=== PATIENT | female | born 1950 | race Caucasian/White ===

== ENCOUNTER 2024-03-06 08:13 | Observation (INO) ==
--- NOTE | 2024-01-30 13:02 | PAT Medication Instructions ---
Medication Instructions Date of Service January 30, 2024 Home Medications albuterol sulfate 90 mcg/actuation aerosol inhaler 2 puff inhalation Q6H PRN Shortness Of Breath ascorbic acid (vitamin C) 1,000 mg capsule 1 g PO QAM cholecalciferol (vitamin D3) 25 mcg (1,000 unit) capsule 25 mcg PO QAM fluticasone propionate 110 mcg/actuation HFA aerosol inhaler 1 puff inhalation BID levocetirizine 5 mg tablet 5 mg PO HS lisinopril 20 mg-hydrochlorothiazide 12.5 mg tablet 1 tab PO QAM magnesium oxide,aspartate,citr 400 mg PO QAM pantoprazole 40 mg tablet,delayed release 40 mg PO QAM potassium chloride 10 mEq capsule,extended release 20 meq PO QAM pravastatin 40 mg tablet 40 mg PO HS zinc acetate 50 mg (zinc) capsule 50 mg PO QAM docusate sodium 100 mg tablet (Stool Softener) 100 mg PO HS PRN Constipation fluticasone propionate 50 mcg/actuation nasal spray,suspension 1 spray intranasal QAM DO NOT take the morning of surgery ascorbic acid (vitamin C) 1,000 mg capsule 1 g PO QAM cholecalciferol (vitamin D3) 25 mcg (1,000 unit) capsule 25 mcg PO QAM lisinopril 20 mg-hydrochlorothiazide 12.5 mg tablet 1 tab PO QAM magnesium oxide,aspartate,citr 400 mg PO QAM potassium chloride 10 mEq capsule,extended release 20 meq PO QAM zinc acetate 50 mg (zinc) capsule 50 mg PO QAM Take morning of surgery With a small sip of water, OTHERWISE NOTHING TO EAT OR DRINK AFTER MIDNIGHT: albuterol sulfate 90 mcg/actuation aerosol inhaler 2 puff inhalation Q6H PRN Shortness Of Breath (use if needed; please bring rescue inhaler with you to hospital day of surgery if possible) fluticasone propionate 110 mcg/actuation HFA aerosol inhaler 1 puff inhalation BID pantoprazole 40 mg tablet,delayed release 40 mg PO QAM fluticasone propionate 50 mcg/actuation nasal spray,suspension 1 spray intranasal QAM Take evening before surgery albuterol sulfate 90 mcg/actuation aerosol inhaler 2 puff inhalation Q6H PRN Shortness Of Breath (if needed) fluticasone propionate 110 mcg/actuation HFA aerosol inhaler 1 puff inhalation BID levocetirizine 5 mg tablet 5 mg PO HS pravastatin 40 mg tablet 40 mg PO HS docusate sodium 100 mg tablet (Stool Softener) 100 mg PO HS PRN Constipation (if needed) Other Notes If you have any questions please call us at [phone] or [phone] or [phone] or [phone]
--- NOTE | 2024-02-05 13:40 | Anesthesiology Consultation ---
Date of Service February 05, 2024 Assessment & Plan (1) Encounter for pre-operative examination: - Infectious disease screening: Per assessment on 02/05/24: No known infectious disease contacts or current infectious disease symptoms. No noted recent Covid positive test result. - Outpatient joint assessment: Pt currently scheduled for inpatient pathway. If surgeon requests review for outpatient joint pathway, patient is not recommended candidate for outpatient joint program from anesthesia standpoint based upon available information. Chart Review Chart Review: Acceptable Risk for Surgery and Patient seen in Pre Admission Testing Teaching & Discussion Pre-Anesthesia Teaching/Discussion Notes: Instructed NPO after midnight before surgery,except medications with 15 cc of water. Medication instructions provided according to the PAT guidelines. History Surgery Operation Date: 03/06/24 09:00 Proposed Procedures p Left Total Knee Arthroplasty - Vicente Cardona DO Height/Weight Height: 5 ft 2 in Weight: 89.6 kg Allergies Allergy/AdvReac Type Severity Reaction Status Date / Time adhesive tape Allergy Intermediate Redness, Verified 02/05/24 13:47 itchiness, bruising coloration with adhesives Medications Home Medications Medication Instructions Recorded Confirmed Last Taken albuterol sulfate 90 mcg/actuation 2 puff inhalation Q6H PRN 12/11/23 01/28/24 Unknown aerosol inhaler Shortness Of Breath ascorbic acid (vitamin C) 1,000 mg 1 g PO QAM 12/11/23 01/28/24 Unknown capsule cholecalciferol (vitamin D3) 25 25 mcg PO QAM 12/11/23 01/28/24 Unknown mcg (1,000 unit) capsule fluticasone propionate 110 1 puff inhalation BID 12/11/23 01/28/24 Unknown mcg/actuation HFA aerosol inhaler levocetirizine 5 mg tablet 5 mg PO 12/11/23 01/28/24 Unknown lisinopril 20 1 tab PO QAM 12/11/23 01/28/24 Unknown mg-hydrochlorothiazide 12.5 mg tablet magnesium oxide,aspartate,citr 400 mg PO QAM 12/11/23 01/28/24 Unknown pantoprazole 40 mg tablet,delayed 40 mg PO QAM 12/11/23 01/28/24 Unknown release potassium chloride 10 mEq 20 meq PO QAM 12/11/23 01/28/24 Unknown capsule,extended release pravastatin 40 mg tablet 40 mg PO 12/11/23 01/28/24 Unknown zinc acetate 50 mg (zinc) capsule 50 mg PO QAM 12/11/23 01/28/24 Unknown docusate sodium 100 mg tablet 100 mg PO HS PRN Constipation 01/28/24 01/28/24 Unknown (Stool Softener) fluticasone propionate 50 1 spray intranasal QAM 01/28/24 01/28/24 Unknown mcg/actuation nasal spray,suspension Past Medical History Medical History Asthma GERD (gastroesophageal reflux disease) Hyperlipidemia Hypertension Obesity Osteoarthritis Exercise / Class Metabolic Activity III < 4 Walking/Shop/Light housework Past Family History Family History Other No family history of adverse response to anesthesia Past Surgical History Surgical History History of cardiac cath ~2013- no stents, symptoms felt to be r/t GERD per patient History of cholecystectomy History of colonoscopy History of esophagogastroduodenoscopy (EGD) History of knee surgery zapata's cyst removed History of left cataract extraction History of tonsillectomy and adenoidectomy History of tooth extraction Past Anesthesia History No Hx of Anesthesia Complications and No Family Hx of Anesthesia Complications History of PONV No Hx of PONV and No Hx of Motion Sickness Social History Smoking Status: Never smoker Do You Dip or Chew Tobacco: No Hx Alcohol Use: Yes Alcohol type: wine and hard liquor alcohol intake frequency: holidays/special occasions only Hx Substance Use: No substance use type: does not use Review of Systems Patient denies chest pain, shortness of breath, dyspnea on exertion, fever, chills, cough, wheezing, palpitations. Physical Exam Vital Signs BP 109/71 P 83 TEMP 98.1 SP02 97%RA RESP 18 Physical Full cervical extension range of motion. Full TMJ range of motion. TMD > 3.5 finger breaths Mallampati Score 2 Dentition: several missing sides/molars Lungs: clear throughout to auscultation Cardiac: regular rate and rhythm, no murmurs noted Spine: normal Carotid arteries: negative bruit Extremities: no LE edema Lab Results Anesthesia Preop Results Results Anesthesia Widget: WBC 4.24 K/ul (4.8-10.8) L 02/05/24 Hgb 12.7 g/dl (12.0-16.0) 02/05/24 Hct 38.5 % (37.0-47.0) 02/05/24 Plt 116 K/uL (130-400) L 02/05/24 Na 140 mmol/L (136-145) 02/05/24 K 3.5 mmol/L (3.5-5.1) 02/05/24 Cl 104 mmol/L (98-107) 02/05/24 CO2 28 mmol/L (21-32) 02/05/24 BUN 14 mg/dl (6-23) 02/05/24 Creat 0.67 mg/dl (0.6-1.2) 02/05/24 Glucose Level 113 mg/dl (70-99(Fasting)) H 02/05/24 PT 10.5 Seconds (9.0-12.0) 02/05/24 PTT 26 Seconds (21-31) 02/05/24 INR 1.0 (0.9-1.1) 02/05/24 Blood Type A Positive 02/05/24 Antibody Screen NEGATIVE 02/05/24 Testing Electrocardiogram Date: 02/05/24 SR with first degree AVB at 76bpm. "Otherwise normal ECG" Chest X-Ray Date: 02/05/24 FINDINGS: PA and lateral chest radiographs are obtained. No prior studies are available for comparison at the time of dictation. The cardiomediastinal silhouette is unremarkable. There is minimal bibasilar atelectasis. The lungs and pleural spaces are otherwise clear. There is no pneumothorax. The skeletal structures are osteopenic. The bony thorax appears intact. Cholecystectomy clips are seen in the right upper quadrant. IMPRESSION: No active disease in the chest.
--- NOTE | 2024-03-05 11:07 | History & Physical Report ---
Date of Service March 05, 2024 Assessment & Plan (1) Osteoarthritis of left knee: We will proceed with a left total knee arthroplasty. Postoperatively she will be started on aspirin for DVT prophylaxis and kept overnight in the hospital for postop medical management. She plans to have the hospital set up home health before discharge. History of Present Illness Chief Complaint: Osteoarthritis of the left knee. Primary Care Provider: NO PCP Angie is a pleasant 73-year-old female who has been dealing with bilateral knee pain. She has known osteoarthritis in both knees. She has been going to physical therapy and seeing another provider up in [facility]. She has been given multiple injections of viscosupplementation. Unfortunately, it is no longer helping. X-rays confirm advanced osteoarthritis of the left knee. After failing conservative treatment, she has elected proceed with a left total knee arthroplasty. Allergies Allergy/AdvReac Type Severity Reaction Status Date / Time adhesive tape Allergy Intermediate Redness, Verified 02/05/24 13:47 itchiness, bruising coloration with adhesives Home Medications Medication Instructions Recorded Confirmed Type albuterol sulfate 90 mcg/actuation 2 puff inhalation Q6H PRN 12/11/23 01/28/24 History aerosol inhaler Shortness Of Breath ascorbic acid (vitamin C) 1,000 mg 1 g PO QAM 12/11/23 01/28/24 History capsule cholecalciferol (vitamin D3) 25 25 mcg PO QAM 12/11/23 01/28/24 History mcg (1,000 unit) capsule fluticasone propionate 110 1 puff inhalation BID 12/11/23 01/28/24 History mcg/actuation HFA aerosol inhaler levocetirizine 5 mg tablet 5 mg PO HS 12/11/23 01/28/24 History lisinopril 20 1 tab PO QAM 12/11/23 01/28/24 History mg-hydrochlorothiazide 12.5 mg tablet magnesium oxide,aspartate,citr 400 mg PO QAM 12/11/23 01/28/24 History pantoprazole 40 mg tablet,delayed 40 mg PO QAM 12/11/23 01/28/24 History release potassium chloride 10 mEq 20 meq PO QAM 12/11/23 01/28/24 History capsule,extended release pravastatin 40 mg tablet 40 mg PO HS 12/11/23 01/28/24 History zinc acetate 50 mg (zinc) capsule 50 mg PO QAM 12/11/23 01/28/24 History docusate sodium 100 mg tablet 100 mg PO HS PRN Constipation 01/28/24 01/28/24 History (Stool Softener) fluticasone propionate 50 1 spray intranasal QAM 01/28/24 01/28/24 History mcg/actuation nasal spray,suspension Past Med/Surg History Medical History Osteoarthritis Obesity Hyperlipidemia Hypertension GERD (gastroesophageal reflux disease) Asthma Surgical History History of left cataract extraction History of knee surgery zapata's cyst removed History of colonoscopy History of esophagogastroduodenoscopy (EGD) History of cholecystectomy History of tooth extraction History of tonsillectomy and adenoidectomy History of cardiac cath ~2013- no stents, symptoms felt to be r/t GERD per patient Family History Other No family history of adverse response to anesthesia Social History Smoking Status: Never smoker Second Hand Exposure: No; Do You Dip or Chew Tobacco: No; Tobacco Cessation Education Requested by Patient: No Hx Alcohol Use: Yes Alcohol type: wine and hard liquor Hx Substance Use: No Preferred Language: [place] Communication Ability: Effective [employer] Supervisor Required: No Beliefs That Will Affect Care: None Current Living Situation: Alone Other Information That Helps Us Care for You: No Feels Safe at Home: Yes Safety Concerns: Feels Safe At This Time Assistive Devices: Glasses Assistive Devices Comment: reading glasses Review of Systems All systems reviewed & are unremarkable except as noted in HPI & below. Physical Exam On physical examination of the left knee, she has a significant varus deformity. She has tenderness palpation of the distal medial femoral condyle and over the medial joint line.. Constitutional WD/WN, vitals as above Eyes PERRL, conjunctivae normal, anicteric sclerae ENMT external ear and nose normal, oropharynx normal Neck trachea midline, no thyromegaly Respiratory normal respiratory effort Cardiovascular RRR, no murmur, no edema Gastrointestinal (Abdomen) normal bowel sounds, soft, nontender, no hepatosplenomegaly Psychiatric A+Ox3, euthymic affect Results & Data Results & Data Laboratory Results . Diagnostic Findings X-rays of the right knee show advanced osteoarthritis with joint space narrowing osteophyte formation and [id number] articulation. PG Care Time/CCT Total # of Minutes Spent Total Time Spent with Patient: Total time spent is greater than 50% in coordination of care (as documented) at patient's floor/unit and/or counseling patient: Coding Level of Care Code None Diagnoses Osteoarthritis of left knee M17.12
[~2024-03-06 08:13] MED LIST: BUPIVACAINE 0.5 % 5 MG/1 ML PF 10ML VIAL ONE; ROPIVACAINE 0.5% 5 MG/ML 30 ML VIAL ONE
[2024-03-06] MEDS ORDERED: PROPOFOL IV EMULSION 10 MG/ML 20 ML VIAL IV ONE (08:21)
[2024-03-06] MEDS ORDERED: fentaNYL citrate PF 100 MCG/2 ML VIAL ONE (08:21)
[2024-03-06] MEDS ORDERED: MIDAZOLAM HCL 1 MG/ML 2ML VIAL ONE (08:22)
--- NOTE | 2024-03-06 09:00 | History & Physical Bridge Note ---
Date of Service March 06, 2024 History & Physical Bridge Note I have examined the patient, reviewed the History & Physical and in the interval since the performance of the History & Physical I have noted the following changes of clinical significance: no changes noted
[2024-03-06] MEDS: LR 500ML BOLUS, THEN 15ML/HR IV SCH (09:01)
[2024-03-06] MEDS: GABAPENTIN 300 MG CAP PO SCH (09:01)
[2024-03-06] MEDS: ACETAMINOPHEN 500 MG TAB PO SCH ×2 (09:01→14:16)
[2024-03-06] MEDS: FAMOTIDINE 20 MG TAB PO SCH (09:01)
[2024-03-06] MEDS: dexAMETHasone**PF** 10 MG/ML VIAL IV SCH (09:01)
[2024-03-06] MEDS: LR 60ML/HR IV SCH (09:02)
[2024-03-06] MEDS ORDERED: fentaNYL citrate PF 100 MCG/2 ML VIAL IV PRN (09:29)
[2024-03-06] MEDS ORDERED: ATROPINE SULFATE 0.1 MG/ML 10ML SYR IV PRN (09:29)
[2024-03-06] MEDS ORDERED: ePHEDrine sulfate 50 MG/ML AMP IV PRN (09:29)
[2024-03-06] MEDS ORDERED: ONDANSETRON INJ 2 MG/ML 2 ML VIAL IV PRN ×2 (09:29→13:20)
[2024-03-06] MEDS: TRANEXAMIC ACID 1,000 MG **IV Pre-op IV SCH (10:08)
[2024-03-06] MEDS: ceFAZolin 2000MG 2,000 MG/15 ML SYR IV SCH ×2 (10:18→16:58)
[2024-03-06] MEDS: ORTHO JOINT ANESTHETIC ONE (10:38)
[2024-03-06] MEDS: ROPIV 0.5% 246mg, Ketorolac 30mg, EPINEPHrine 0.5mg in NSS INFIL SCH (11:30)
[2024-03-06] MEDS: TRANEXAMIC ACID 1,000 MG **IV Intra-op IV SCH (11:35)
--- NOTE | 2024-03-06 11:37 | Operative Report ---
PG Post Operative Report Pre & Post Diagnosis Operation Date: 03/06/24 10:00 Pre-Op Diagnosis: Osteoarthritis of left knee Post-Op Diagnosis: Osteoarthritis of left knee I identified the patient and participated in the time-out.: Yes Procedure Operation Date: 03/06/24 10:00 Actual Procedures p Left Total Knee Arthroplasty(Left) - Vicente Cardona DO Surgeon Vicente Cardona DO Fine Grader Vicente Bhardwaj PA-C Estimated Blood Loss 30 Findings Consistent with Post-Op Diagnosis Specimens Left femoral tibial bone Description of Procedure Implants used: I used a Shanika Persona total knee arthroplasty system with a size 5 PS femur, D tibia, 31 over patella, and a size 14 CPS polyethylene bearing. All components were cemented in place with Biomet cement. Angie arrived [facility] for the above procedure. She was seen in the preoperative holding area and the operative extremity was identified and signed. She was given a preoperative antibiotic, TXA, a spinal anesthetic and an adductor nerve block. She was taken back to the operating room and laid on the table in supine position. She was given basic sedation. The operative knee was then prepped and draped in sterile fashion. A timeout was done, and the patient and the operative extremity was properly identified. A midline incision was made directly over the patella. Dissection was taken down to the extensor mechanism. A medial parapatellar arthrotomy was used. The medial retinaculum was released and the fat pad was mostly excised. The knee was flexed and the ACL, PCL, and meniscus were removed. A drill was sent down the center of the femoral canal followed by an intramedullary mckayla. Off that mckayla a distal femoral cutting block was placed. 9 mm was resected off the distal femur at 5 of valgus. A posterior referencing AP sizing guide was then placed on the distal femur. The femur measured to be a size 5. 2 drill holes were placed in 3 of external rotation. A 4-in-1 cutting block was then impacted into place. Anterior, posterior, and chamfer cuts were then made. The proximal tibia was then exposed. An external tibial alignment guide was placed. A tibial cut guide was then anchored in place and the proximal tibia was then resected. The posterior aspect of the knee was then opened up and any additional meniscus fragments and osteophytes were removed. The tibia measured to be a size D. The tibial plate was then placed in the appropriate rotation and the tibia was drilled and punched. Trial components were then placed. I used a size 14 CPS polyethylene insert. The knee was brought through a full range of motion and felt to be stable. The peg holes for the femoral component were then drilled. The patella was then everted and 9 mm was resected off the posterior aspect of the patella. The patella measured to be a size 31 oval. 3 peg holes were then drilled. A trial patella was placed. The knee was once again brought through a full range of motion and felt to be stable. Trial components were then removed. The surrounding soft tissues were injected with 100 cc of an orthopedic pain control cocktail. All components were then cemented into place with Biomet cement. The final polyethylene insert was then snapped into place. Once cement was dry the tourniquet was deflated. Hemostas is was obtained. A dilute betadyne lavage was then done for 3 minutes. The joint was then irrigated with normal saline solution. The medial parapatellar arthrotomy was then closed with #1 Vicryl suture. The skin was closed with 2-0 Vicryl, 3-0V lock suture, and aliyah. A soft compressive dressing was placed. She was then transferred to a hospital bed and taken to the postanesthesia care unit in stable condition. She tolerated the procedure well. Vicente Bhardwaj PA-C, was present for the entire procedure. He was critical for patient positioning, prepping, draping, retraction exposure, wound closure and application of sterile dressing. I attest to the content of the Intraoperative Record and any orders documented therein. Any exceptions are noted below.
--- NOTE | 2024-03-06 12:24 | XRay Report ---
XR knee LT 1 or 2V routine HISTORY: 73 years-old Female Surgical Post Op left knee arthroplasty COMPARISON: 12/11/2023 TECHNIQUE: 2 views of the left knee FINDINGS: Total joint arthroplasty with patellar resurfacing. Anterior midline skin aliyah with expected posto perative soft tissue swelling and deep tissue air. No acute fracture, dislocation or unexpected opaqu e foreign body. IMPRESSION: Total joint arthroplasty with expected postoperative changes. ACT 112: Negative or not required by law. The above report was generated using voice recognition software. It may contain grammatical, syntax o r spelling errors. Electronically signed by: Scott Sneed M.D. 03/06/2024 12:23 PM
--- NOTE | 2024-03-06 12:50 | Anesthesiology Progress Note ---
Date of Service March 06, 2024 Anesthesia Post Procedure Vital Signs Vital Signs: Temp Pulse Pulse Resp BP Pulse Ox O2 Del Method 03/06/24 12:40 98.1 F 84 17 126/75 94 Room Air 03/06/24 12:30 94 H 20 122/70 98 Oxymask 03/06/24 12:20 85 18 120/75 97 Oxymask 03/06/24 12:10 88 17 112/84 98 Oxymask 03/06/24 12:00 97.2 F L 90 14 111/59 L 97 Oxymask 03/06/24 09:13 98.2 F 101 H 20 142/71 H 95 Room Air O2 Flow Rate 03/06/24 12:40 03/06/24 12:30 3 03/06/24 12:20 3 03/06/24 12:10 3 03/06/24 12:00 5 03/06/24 09:13 Transfer of Care Handoff Completed per policy Notes Mental Status: alert / awake / arousable and participated in evaluation Patient Amnestic to Procedure: Yes Nausea / Vomiting: adequately controlled Pain: adequately controlled Airway Patency, RR, SpO2: stable & adequate BP & HR: stable & adequate Hydration State: stable & adequate Neuraxial Anesthesia: was administered and sensory block is resolving Anesthetic Complications: no major complications apparent and Pt Satisfied with anesthetic care
[2024-03-06] MEDS ORDERED: bisacodyL 10 MG SUPP PR PRN (13:20)
[2024-03-06] MEDS ORDERED: NALOXONE HCL 0.4 MG/1 ML VIAL/CARP IV PRN (13:20)
[2024-03-06] MEDS ORDERED: MAGNESIUM HYDROXIDE SUSP 30 ML UDC PO PRN (13:20)
[2024-03-06] MEDS ORDERED: ALBUTEROL HFA 8 GM INHALER INH PRN (13:20)
[2024-03-06] MEDS ORDERED: oxyCODONE HCL IR 5 MG TAB (IMMEDIATE RELEASE) PO PRN (13:20)
[2024-03-06] MEDS ORDERED: METOCLOPRAMIDE HCL INJ 5 MG/ML 2 ML VIAL IV PRN (13:20)
[2024-03-06] MEDS ORDERED: HYDROmorphone INJ 0.5 MG/0.5 ML SYR IV PRN (13:20)
[2024-03-06] MEDS: SODIUM CHLORIDE 0.9% 1,000 ML IV SCH (13:34)
[2024-03-06] MEDS: KETOROLAC TROMETHAMINE 15 MG/ML VIAL IV SCH (14:16)
[2024-03-06] MEDS: FLUTICASONE FUROATE 100MCG 14 PUFFS/INHALER INH SCH (14:16)
[2024-03-06] MEDS: SENNA 8.6 MG TAB PO SCH (20:06)
[2024-03-06] MEDS: PRAVASTATIN SOD 40 MG TAB PO SCH (20:06)
[2024-03-06] MEDS: ASPIRIN 81 MG ECTAB PO SCH (20:06)
[2024-03-06] MEDS: DOCUSATE SODIUM 100 MG CAP PO SCH (20:06)
[2024-03-06] MEDS: CETIRIZINE HCL 10 MG TABLET PO SCH (20:06)
--- NOTE | 2024-03-07 07:21 | Orthopedic Progress Note ---
Date of Service March 07, 2024 Assessment & Plan (1) Status post left knee replacement: Overall she is doing very well. She is not having much pain in the left knee. She will be seen by physical therapy today for ambulation and range of motion exercises. The nursing staff can change her dressing after physical therapy. She is on aspirin for DVT prophylaxis. She can be discharged home later today. She will follow-up with orthopedics in 2 weeks. Yefri Adams was seen and examined at bedside this morning. Overall she is doing very well. She is not having much pain in the left knee. She has been up and ambulating to the bathroom. She is no complaints.. Review of Systems All systems reviewed & are unremarkable except as noted in HPI & below. Physical Exam On physical examination of left knee, the dressing is clean and dry. Her leg is out full extension. She has active dorsiflexion plantarflexion of her left ankle.. Results & Data Results & Data Laboratory Results . Diagnostic Findings Postoperative x-rays of the left knee show the prosthesis to be in anatomic alignment without any evidence of fracture, desiccation, or loosening.. PG Care Time/CCT Total # of Minutes Spent Total Time Spent with Patient: Total time spent is greater than 50% in coordination of care (as documented) at patient's floor/unit and/or counseling patient: Coding Level of Care Code 27527 Post Operative Follow-Up Diagnoses Status post left knee replacement Z96.652
--- NOTE | 2024-03-07 07:22 | Discharge Summary ---
Date of Service March 07, 2024 Admission HPI (Per Admitting) Angie is a pleasant 73-year-old female who has been dealing with bilateral knee pain. She has known osteoarthritis in both knees. She has been going to physical therapy and seeing another provider up in [facility]. She has been given multiple injections of viscosupplementation. Unfortunately, it is no longer helping. X-rays confirm advanced osteoarthritis of the left knee. After failing conservative treatment, she has elected proceed with a left total knee arthroplasty. Admission Exam (Per Admitting) On physical examination of the left knee, she has a significant varus deformity. She has tenderness palpation of the distal medial femoral condyle and over the medial joint line.. Principal Diagnosis Same as "Discharge Diagnosis" noted below under Discharge Instructions. Discharge Exam On physical examination of left knee, the dressing is clean and dry. Her leg is out full extension. She has active dorsiflexion plantarflexion of her left ankle.. Discharge Data Procedures Performed Operation Date: 03/06/24 10:00 Actual Procedures p Left Total Knee Arthroplasty(Left) - Vicente Cardona DO Ordered Studies 03/06/24 05:00 US - OR guided needle placemen Routine Hospital Course (1) Status post left knee replacement: On March 06, 2024 Angie arrived at [facility] and underwent a left knee replacement without complication. She had a spinal anesthetic. Postoperatively she was started on aspirin for DVT prophylaxis and transferred to the general orthopedic floors. Her hospital course was uneventful. On postop day #1, her vital signs were stable and her pain was well-controlled. She was able to participate well with physical therapy doing ambulation and range of motion exercises. She was then discharged home. She will follow-up with orthopedics in 2 weeks. PG Care Time/CCT Total # of Minutes Spent Total Time Spent with Patient: Total time spent is greater than 50% in coordination of care (as documented) at patient's floor/unit and/or counseling patient: Discharge Plan Discharge Items Patient Disposition: Home - Self-Care Reason For Visit: Left Knee Degenerative Joint Disease Discharge Diagnosis: Left knee replacement Activity: Per Instructions section Non-emergency contact: Surgeon Call non-emergency contact if: your wound has increased redness and your wound has increased drainage Follow-up/Referrals: Tonya Giraldo MD [Primary Care Provider] - Diet: Regular Addtl Attending Provider Instructions: Activity and Therapy Recommendations: * If you are using [facility] then therapy will be provided at your home until they feel you have accomplished all of your goals. * If you are using [facility] then Physical Therapy will be provided until they feel you are ready to start Outpatient Physical Therapy. * If you are not using home therapy then Outpatient Physical Therapy should start about 3-5 days from your day of surgery. Therapy will last about 6-10 weeks * It is important not to put a pillow under your knee when you are relaxing or sleeping. It is just as important to make sure you are getting your knee perfectly straight as it is to regain your knee bend. * You were shown a series of exercises in the hospital. Do these exercises three times each day including the exercises you were shown in physical therapy. * Get up and walk several times each day. For the first four weeks, try not to stand or walk for more than one hour at a time. If you do stand or walk for more than one hour, you will not hurt anything, but your leg will likely swel l. * As you feel comfortable, you may change from the walker or crutches to a cane and then to independent walking. Medications: * Narcotic You will likely be sent home from the hospital with a prescription for the narcotic pain medication that worked best throughout your stay. * Cefadroxil -take the antibiotic twice a day for 10 days to help prevent infection. * Aspirin Most patients will be required to take Aspirin 81mg twice a day for 6 weeks after surgery. This is obtained [id number] and a prescription is not necessary. * Other medications may be prescribed for specific circumstances. If you have any questions, please call the office at . * Resume previous home medications unless otherwise instructed TEDs/Elastic Stockings: The white elastic stockings help limit swelling and prevent blood clots from forming in your legs.~ The more you wear them, the more they work. Wear them for six weeks. Dressing Care: The dressing can be changed after physical therapy on postop day #1. Daily dry dressing changes for a few days, especially if the incision is still draining some. If the incision is not draining then you may leave the aliyah open to air. If there is a little bit of drainage or if the aliyah are getting stuck on your clothing then cover the incision with a dry dressing. The aliyah will be removed at your 2 week follow-up appointment. Showering: You may shower 5 days from the day of surgery as long as the incision is no longer draining. You may shower with the aliyah exposed. Let soapy water run over the aliyah and pat them dry. Do not scrub or soak the incision. Things To Watch For: * Drainage from the incision site that occurs more than one week after your surgery. * Increased redness at the incision site. * Fever above 102 degrees Fahrenheit. * Unusual chest pain or shortness of breath. * Call [facility] at with any of the above problems Follow-Up Visit: Follow-up with Dr. Cardona's PA (Vicente Bhardwaj) 2-3 weeks after your day of surgery. He will remove your aliyah and answer any questions. If you have any additional questions or concerns, Dr Cardona is usually in the office at the same time and will be available An appointment was probably scheduled when you signed-up for surgery in the office. If you have any questions call Office Instructions: More detailed instructions as well as Frequently Asked Questions were provided in a folder by our office when you signed-up for surgery. Please review these instructions when you get home. If you have any further questions or concerns, please feel free to call the office at [phone] Pending Studies at Discharge: No Stand-Alone Forms: [facility] Sm[facility] Cess[facility] Medications and DC Order Prescriptions: New oxycodone 5 mg Tablet 5 mg PO Q4H PRN (Reason: pain) Qty: 30 0RF cefadroxil 500 mg capsule 500 mg PO BID 10 Days Qty: 20 0RF aspirin 81 mg Tablet,Delayed Release (Dr/Ec) 81 mg PO BID 42 Days Qty: 0 0RF Continued albuterol sulfate 90 mcg/actuation HFA aerosol inhaler 2 puff inhalation Q6H PRN (Reason: Shortness Of Breath) ascorbic acid (vitamin C) 1,000 mg capsule 1 g PO QAM cholecalciferol (vitamin D3) 25 mcg (1,000 unit) capsule 25 mcg PO QAM fluticasone propionate 110 mcg/actuation HFA aerosol inhaler 1 puff inhalation BID levocetirizine 5 mg tablet 5 mg PO HS lisinopril-hydrochlorothiazide 20-12.5 mg tablet 1 tab PO QAM pantoprazole 40 mg tablet,delayed release (DR/EC) 40 mg PO QAM potassium chloride 10 mEq capsule, extended release 20 meq PO QAM pravastatin 40 mg tablet 40 mg PO HS zinc acetate 50 mg (zinc) capsule 50 mg PO QAM magnesium oxide,aspartate,citr 400 mg magnesium capsule 400 mg PO QAM fluticasone propionate [Flonase] 50 mcg/actuation [place],Suspension 1 spray INTRANASAL QAM Rx Instructions: administer into each nostril docusate sodium [Stool Softener] 100 mg Tablet 100 mg PO HS PRN (Reason: Constipation) Discharge Orders: Discharge Order (Routine); Ordered 03/07/24 Ordered By: Vicente Cardona Admission Data Admit Date/Time: 03/06/24 12:01 Attending Provider: Vicente Cardona Admit Provider: Vicente Cardona Primary Care Provider: Tonya Giraldo
[2024-03-07] MEDS: dexAMETHasone 4 MG TAB PO SCH (08:20)
[2024-03-07] MEDS: FLUTICASONE PROPIONATE NA SPR 16 GM BTL NAE SCH (08:20)
[2024-03-07] MEDS: LISINOPRIL/HCTZ 20/12.5MG 1 TAB TAB PO SCH (08:21)
[2024-03-07] MEDS: POTASSIUM CHLORIDE CRTAB 20 MEQ TABCR PO SCH (08:21)
[2024-03-07] MEDS: MULTIVITAMIN TAB PO SCH (08:21)
== END 2024-03-07 08:46 | disposition home health service (06) ==
LOC: ASU 08:13 → 3N 08:13